=== PATIENT | female | born 1985 | race Caucasian/White ===

== ENCOUNTER 2017-03-17 10:34 | Emergency (ER) | payer SELFPAY ==
[~2017-03-17] VITALS: Ht 160 cm; Wt 90.0 kg
[2017-03-17 10:36] VITALS: Ht 160 cm; Wt 90.0 kg
[2017-03-17] MEDS ORDERED: ACETAMINOPHEN 500 MG TAB PO STA (10:54)
[2017-03-17] MEDS ORDERED: ACET500C5 PO (10:57)
--- NOTE | 2017-03-17 11:03 | ERD ---
ER Documentation Chief Complaint Date/Time DATE: 03/17/17 TIME: 10:58 Chief Complaint LEFT SOLE PAIN X 3 DAYS, 35 WEEKS HPI Patient is a 32-year-old female, 35 weeks , , who presents emergency department with left sole pain 3 days. Patient denies any falls or trauma. Patient states pain is worse when ambulating. Patient reports using BenGay as well as Voltaren gel for her pain. Patient also reports using ice and hot packs. Patient denies any fevers or chills. Patient is ambulating. Patient denies any pelvic pain, contractions, vaginal bleeding, excessive vaginal discharge, loss of fluid, nausea or vomiting. ROS All systems reviewed and are negative except as per history of present illness. Medications Home Meds Active Scripts Acetaminophen* (Tylophen*) 500 Mg Capsule, 2 CAP PO Q8H Y for PAIN AND OR ELEVATED TEMP, #30 CAP Prov:MIMI FISHER PA-C 03/17/17 Physical Exam Vitals Vital Signs Date Time Temp Pulse Resp B/P Pulse Ox O2 Delivery O2 Flow Rate FiO2 03/17/17 10:36 98.1 89 18 100/55 99 Physical Exam GENERAL: Well-developed, well-nourished female. Appears in no acute distress. HEAD: Normocephalic, atraumatic. EYES: Pupils are equally reactive bilaterally. EOMs grossly intact. No conjunctival erythema. ENT: Moist mucous membranes. No uvula deviation. No kissing tonsils. NECK: Supple. No meningismus. Normal range of motion of the neck. LUNG: Clear to auscultation bilaterally. No rhonchi, wheezing, rales or coarse breath sounds. HEART: Regular rate and rhythm. No murmurs, rubs or gallops. EXTREMITIES: Equal pulses bilaterally. No peripheral clubbing, cyanosis or edema. No unilateral leg swelling. NEUROLOGIC: Alert and oriented. Moving all four extremities without any difficulty. Normal speech. Steady gait. SKIN: Normal color. Warm and dry. No rashes or lesions. LEFT FOOT: No deformity, erythema, ecchymosis or swelling. Skin intact. Full ROM of the ankle and knee. patient able to move all toes without any difficulty. Tender to palpation of the lateral and middle foot sole. Nontender to palpation of the fifth metatarsal, ankle or tibia-fibula. Sensation intact to light touch. Neurovascularly intact. (Able to plantarflex, dorsiflex, jarad foot, invert foot, raise big toe.) 2+ DP and DT pulses. Results 24 hrs Current Medications Medications (Trade) Dose Ordered Sig/Jessy Route PRN Reason Start Time Stop Time Status Last Admin Dose Admin Acetaminophen (Tylenol Tab) 1,000 mg ONCE STAT PO 03/17/17 10:54 03/17/17 10:55 DC 03/17/17 11:02 Procedures/MDM ED COURSE: The patient was stable throughout ED course. I kept the patient and/or family informed of laboratory and diagnostic imaging results throughout the ED course. PROCEDURES: SPLINT APPLICATION: The patient was verbally consented at bedside prior to splint application. Patient was explained the risks, benefits and alternatives to this procedure. The patient was neurovascularly intact prior to and status post application of the splint. The patient tolerated the procedure well with no complications. Splint type: janet wrap Extremity: left foot Indication: pain MEDICATIONS GIVEN: Tylenol Patient tolerated medication well with no adverse reactions. Patient reported improvement in pain. MEDICAL DECISION MAKING: This is a 32-year-old female who presents to the ED with left foot pain 3 days. Patient denies any falls or trauma. Patient reports pain when bearing weight to the affected extremity. Patient denied taking any medication. Vital signs were reviewed. Patient was afebrile. Given that patient denied any falls or trauma, I do not feel that x-ray imaging is necessary at this time. Patient was given Tylenol here in the ED. Patient will be discharged with a prescription for Tylenol at home. Patient was advised to use warm compresses and elevate her leg. Given these findings, the patient's presentation is most consistent with foot pain. I have a much lower clinical concern for ankle dislocation, tibia fracture , fibula fracture, ankle fracture, tarsal bone fracture, metatarsal fracture, phalangeal fracture, stress fracture, lisfranc injury, gout, septic joint, reactive arthritis, psoriatic arthritis, DVT, compartment syndrome. At this time , unable to rule out any tendon and ligament injuries. Patient denied any vaginal bleeding, contractions, excessive vaginal discharge, pelvic pain or abdominal pain. Patient has not been seen by the [facility] prior to arriving to the ED. Patient will be discharged with instructions to go upstairs to the [facility] for clearance. Nursing staff aware that patient is to be discharged and taken to [facility]. PRESCRIPTIONS: Tylenol DISCHARGE: At this time, patient is stable for discharge and outpatient management. RICE therapy and ROM exercises were advised to avoid stiffness. I have instructed the patient to follow-up with his/her primary care physician in 1-2 days. I have discussed with the patient the possibility of needing to see an database marketing specialist for further workup and imaging if the pain persists. I have instructed the patient to promptly return to the ER for any new or worsening symptoms including increased pain, swelling, redness, warmth or fever. The patient and/or family expressed understanding of and agreement with this plan. All questions were answered. Home care instructions were provided. Departure Diagnosis: Primary Impression: Foot pain Laterality: left Qualified Code: M79.672 - Left foot pain Additional Impression: Weeks of gestation: unspecified Qualified Code: Z33.1 - , unspecified gestational age Condition: Stable Patient Instructions: Sprain Foot Referrals: [facility] YOU HAVE RECEIVED A MEDICAL SCREENING EXAM AND THE RESULTS INDICATE THAT YOU DO NOT HAVE A CONDITION THAT REQUIRES URGENT TREATMENT IN THE EMERGENCY DEPARTMENT. FURTHER EVALUATION AND TREATMENT OF YOUR CONDITION CAN WAIT UNTIL YOU ARE SEEN IN YOUR DOCTORS OFFICE WITHIN THE NEXT 1-2 DAYS. IT IS YOUR RESPONSIBILITY TO MAKE AN APPOINTMENT FOR FOLOW-UP CARE. IF YOU HAVE A PRIMARY DOCTOR --you should call your primary doctor and schedule an appointment IF YOU DO NOT HAVE A PRIMARY DOCTOR YOU CAN CALL OUR PHYSICIAN REFERRAL HOTLINE AT IF YOU CAN NOT AFFORD TO SEE A PHYSICIAN YOU CAN CHOSE FROM THE FOLLOWING [facility] [address] [facility]. [facility] [address] [facility] [address] [facility] [address] [facility]. [facility] [address] [facility]. [facility]. [address] [facility] YOU HAVE RECEIVED A MEDICAL SCREENING EXAM AND THE RESULTS INDICATE THAT YOU DO NOT HAVE A CONDITION THAT REQUIRES URGENT TREATMENT IN THE EMERGENCY DEPARTMENT. FURTHER EVALUATION AND TREATMENT OF YOUR CONDITION CAN WAIT UNTIL YOU ARE SEEN IN YOUR DOCTORS OFFICE WITHIN THE NEXT 1-2 DAYS. IT IS YOUR RESPONSIBILITY TO MAKE AN APPOINTMENT FOR FOLOW-UP CARE. IF YOU HAVE A PRIMARY DOCTOR --you should call your primary doctor and schedule and appointment IF YOU DO NOT HAVE A PRIMARY DOCTOR YOU CAN CALL OUR PHYSICIAN REFERRAL HOTLINE AT . IF YOU CAN NOT AFFORD TO SEE A PHYSICIAN YOU CAN CHOSE FROM THE FOLLOWING [facility] INSTITUTIONS: [facility] [address] [place] [address] [facility] [address] [place] [address] [facility] [address] [place] [address] [facility] Hours: Mon-Fri 9:00 AM - 5:00 PM Additional Instructions: Call your primary care doctor TOMORROW for an appointment during the next 1-2 days.See the doctor sooner or return here if your condition worsens before your appointment time. Patient will be discharged and advised to go upstairs to the OB unit to obtain OB clearance. MIMI FISHER PA-C Mar 17, 2017 11:03
== END 2017-03-17 11:15 | disposition home or self-care (01) ==
LOC: FTE 10:34
DX: O99.89 Other specified diseases and conditions complicating pregnancy, childbirth and the puerperium (principal); M79.672 Pain in left foot; Z3A.35 35 weeks gestation of pregnancy
CPT/HCPCS: 99283